=== PATIENT | female | born 1955 | race Caucasian/White ===

== ENCOUNTER 2019-09-28 07:30 | Inpatient (IN) | payer MEDICARE, OTHER ==
[~2019-09-28] VITALS: Ht 167.6 cm; Wt 71.0 kg
[2019-10-09] MEDS ORDERED: DICL75TA3 PO (13:30)
[2019-10-09 14:06] LABS: BASOPHILS # (AUTO) 0.04 x10^3/uL (0-0.1); BASOPHILS % (AUTO) 0 % (0-1); EOSINOPHILS # (AUTO) 0.13 x10^3/uL (0-0.4); EOSINOPHILS % (AUTO) 1 % (1-7); LYMPHOCYTES # (AUTO) 1.64 x10^3/uL (1-3.4); LYMPHOCYTES % (AUTO) 17 % (22-44); MD NO; MEAN CORPUSCULAR HEMOGLOBIN 30.3 pg (27.0-34.8); MEAN CORPUSCULAR HGB CONC 32.8 g/dL (32.4-35.8); MEAN CORPUSCULAR VOLUME 92.3 fL (80-100); MONOCYTES # (AUTO) 0.53 x10^3/uL (0.2-0.8); MONOCYTES % (AUTO) 5 % (2-9); NEUTROPHILS # (AUTO) 7.47 x10^3/uL (1.8-6.8); NEUTROPHILS % (AUTO) 76 % (42-75); PLATELET COUNT 733 x10^3/uL (130-400); RED BLOOD COUNT 3.96 x10^6/uL (3.82-5.3); RED CELL DISTRIBUTION WIDTH 15.1 % (9.6-15.2)
[2019-10-09 14:13] LABS: INTERNATIONAL NORMALIZED RATIO 0.96 (0.93-1.1); PROTHROMBIN TIME 10.2 Seconds (9.6-11.5)
[2019-10-09 14:14] LABS: ALANINE AMINOTRANSFERASE 17 U/L (12-78); ALBUMIN 3.4 g/dL (3.4-5.0); ANION GAP 5 mmol/L (5-15); CALCIUM 9.3 mg/dL (8.5-10.1); CHLORIDE 108 mmol/L (98-107); CREATININE 0.72 mg/dL (0.55-1.02)
[2019-10-09 14:16] LABS: ALKALINE PHOSPHATASE 81 U/L (45-117); BILIRUBIN,TOTAL 0.2 mg/dL (0.2-1.0); TOTAL PROTEIN 7.8 g/dL (6.4-8.2)
[2019-10-10] MEDS ORDERED: TRANEXAMIC ACID 100 MG/ML, 10ML ONE ×2 (06:20)
[2019-10-10] MEDS ORDERED: ROPIvacaine/PF 0.5%, 30 ML ONE ×2 (06:20→08:33)
[2019-10-10] MEDS ORDERED: VANCOMYCIN 1,000 MG ONE ×3 (06:20→15:21)
[2019-10-10] MEDS ORDERED: KETOROLAC 60 MG/2 ML ONE (06:20)
[2019-10-10] MEDS ORDERED: SODIUM CHLORIDE 0.9% 50 ML ONE (06:20)
[2019-10-10] MEDS ORDERED: EPINEPHRINE 1 MG/ML, 1ML ONE (06:20)
[2019-10-10] MEDS ORDERED: SCOPOLAMINE PATCH, 1.5MG PATCH.TD72 TD ONE (06:30)
[2019-10-10] MEDS ORDERED: VANCOMYCIN PER PHARMACY MC ONE (06:30)
[2019-10-10] MEDS ORDERED: ZOLPIDEM 5MG TABLET PO PRN (06:30)
[2019-10-10] MEDS ORDERED: MAGNESIUM HYDROXIDE 8%, 30ML UDC PO PRN (06:30)
[2019-10-10] MEDS ORDERED: ONDANSETRON 4 MG TABLET PO PRN (06:30)
[2019-10-10] MEDS ORDERED: BISACODYL 10 MG SUPP PR PRN (06:30)
[2019-10-10] MEDS ORDERED: HYDROcodone/APAP 5/325 TABLET PO PRN (06:30)
[2019-10-10] MEDS ORDERED: CEFAZOLIN PMX 2GM/50ML 50 ML IVPB SCH (06:30)
[2019-10-10] MEDS: DOCUSATE 100 MG CAPSULE PO SCH ×2 (09:00→20:13)
[2019-10-10] MEDS ORDERED: MIDAZOLAM 1 MG/ML, 2ML ONE (12:02)
[2019-10-10] MEDS ORDERED: FENTANYL PF 250 MCG/5ML ONE (12:02)
[2019-10-10] MEDS ORDERED: TOBRAMYCIN SULFATE 1.2 GM IMP ONE (12:33)
[2019-10-10] MEDS ORDERED: LACTATED RINGERS 1,000 ML IV SCH (12:50)
[2019-10-10] MEDS ORDERED: GABAPENTIN 300 MG CAPSULE PO ONE (13:00)
[2019-10-10] MEDS ORDERED: ACETAMINOPHEN 500 MG TABLET PO ONE (13:00)
[2019-10-10 13:10] VITALS: BP 135/90
[2019-10-10] MEDS ORDERED: VANCOMYCIN 1,200 MG in SODIUM CHLORIDE 0.9% 250 ML IV ONE (13:30)
[2019-10-10] MEDS ORDERED: PHARMACOKINETIC CONSULTATION MC ONE (13:30)
[2019-10-10] MEDS ORDERED: PROPOFOL 50 ML ONE ×2 (13:38→14:31)
[2019-10-10] MEDS ORDERED: DEXAMETHASONE 4 MG/ML, 1ML ONE ×2 (13:41)
[2019-10-10] MEDS ORDERED: ONDANSETRON 2MG/ML, 2ML ONE (13:41)
[2019-10-10] MEDS ORDERED: CEFAZOLIN 1,000 MG ONE ×2 (13:41)
[2019-10-10] MEDS ORDERED: LIDOCAINE-MPF 2% ,5ML ONE (13:42)
[2019-10-10] MEDS ORDERED: PHENYLEPHRINE 10 MG/ML ONE (13:49)
[2019-10-10] MEDS ORDERED: GLYCOPYRROLATE 0.2MG/1ML, 5ML ONE (13:49)
[2019-10-10] MEDS ORDERED: NEOSTIGMINE 1 MG/ML, 10ML ONE (13:49)
[2019-10-10] MEDS ORDERED: ROCURONIUM 10 MG/ML,10ML ONE (13:49)
[2019-10-10] MEDS ORDERED: INDIGO CARMINE 0.8%, 5ML ONE (14:19)
[2019-10-10] MEDS ORDERED: FENTANYL PF 100 MCG/2ML ONE (16:11)
[2019-10-10] MEDS ORDERED: OXYcodone 5 MG/5 ML ORAL.SOL UDC ONE (16:12)
[2019-10-10] MEDS: FENTANYL PF 100 MCG/2ML IV PRN ×2 (16:15→16:50)
[2019-10-10] MEDS ORDERED: HYDROmorphone 2 MG/ML, 1ML IVPush PRN (16:30)
[2019-10-10] MEDS ORDERED: MEPERIDINE/PF 25MG/ML,1ML IVPush PRN (16:30)
[2019-10-10] MEDS ORDERED: DIAZEPAM 5 MG/ML, 2ML IVPush PRN (16:30)
[2019-10-10] MEDS ORDERED: ONDANSETRON 2MG/ML, 2ML IV PRN (16:30)
[2019-10-10] MEDS ORDERED: ACETAMINOPHEN 325 MG TABLET PO PRN (16:30)
[2019-10-10] MEDS ORDERED: OXYcodone 5 MG/5 ML ORAL.SOL UDC PO PRN (16:30)
[2019-10-10] MEDS ORDERED: ACETAMINOPHEN 650 MG/20.3 ML UDC ONE (16:32)
[2019-10-10] MEDS ORDERED: ACETAMINOPHEN 325 MG TABLET ONE (16:32)
[2019-10-10] MEDS ORDERED: DIAZEPAM 5 MG/ML, 2ML ONE (16:55)
[2019-10-10] MEDS: ASPIRIN 81 MG TABLET EC PO SCH (18:00)
[2019-10-10 19:22] VITALS: BP 91/60
[2019-10-10] MEDS: DAPTOMYCIN 400 MG in SODIUM CHLORIDE 0.9% 100 ML IVPB SCH (20:13)
[2019-10-10] MEDS: ONDANSETRON 2MG/ML, 2ML IV PRN (20:16)
[2019-10-10] MEDS: OXYcodone IR 5MG TABLET PO PRN (20:42)
[2019-10-10] MEDS: ACETAMINOPHEN 650 MG/20.3 ML UDC PO PRN (20:42)
[2019-10-10] MEDS: NS + 20MEQ KCL 1,000 ML IV SCH (22:00)
[2019-10-11] VITALS (9 sets, daily range): BP systolic 88–109; BP diastolic 47–72
[2019-10-11] MEDS: OXYcodone IR 5MG TABLET PO PRN ×4 (01:09→20:46)
[2019-10-11] MEDS: ACETAMINOPHEN 650 MG/20.3 ML UDC PO PRN ×3 (01:09→18:45)
[2019-10-11] MEDS ORDERED: DEXAMETHASONE 4 MG/ML, 1ML IVPush SCH (06:00)
[2019-10-11] MEDS ORDERED: DIPHENHYDRAMINE 50 MG/ML, 1ML IVPush PRN (06:30)
[2019-10-11] MEDS: ONDANSETRON 2MG/ML, 2ML IV PRN (07:51)
[2019-10-11] MEDS: DIPHENHYDRAMINE 50 MG CAPSULE PO PRN ×2 (07:51→18:50)
[2019-10-11] MEDS: ASPIRIN 81 MG TABLET EC PO SCH ×2 (07:51→18:44)
[2019-10-11] MEDS: DOCUSATE 100 MG CAPSULE PO SCH ×2 (09:25→20:29)
[2019-10-11] MEDS: SENNA/DOCUSATE TABLET PO PRN (09:26)
[2019-10-11] MEDS: NS + 20MEQ KCL 1,000 ML IV SCH ×2 (10:30→23:00)
[2019-10-11] MEDS ORDERED: DIPHENHYDRAMINE 25 MG CAPSULE ONE (18:49)
[2019-10-11] MEDS: DAPTOMYCIN 400 MG in SODIUM CHLORIDE 0.9% 100 ML IVPB SCH (20:29)
[2019-10-12 01:02] VITALS: BP 105/65
[2019-10-12] MEDS: OXYcodone IR 5MG TABLET PO PRN ×4 (01:56→21:09)
[2019-10-12] MEDS: ACETAMINOPHEN 650 MG/20.3 ML UDC PO PRN ×4 (01:56→21:09)
[2019-10-12] MEDS: DIPHENHYDRAMINE 50 MG CAPSULE PO PRN ×4 (02:05→21:09)
[2019-10-12 05:45] LABS: ANION GAP 6 mmol/L (5-15); CALCIUM 7.8 mg/dL (8.5-10.1); CHLORIDE 111 mmol/L (98-107); CREATININE 0.78 mg/dL (0.55-1.02)
[2019-10-12 06:04] LABS: BASOPHILS # (AUTO) 0.03 x10^3/uL (0-0.1); BASOPHILS % (AUTO) 0 % (0-1); EOSINOPHILS # (AUTO) 0.19 x10^3/uL (0-0.4); EOSINOPHILS % (AUTO) 2 % (1-7); HCT (SEDRATE) 24.7 % (34.6-47.8); LYMPHOCYTES # (AUTO) 1.89 x10^3/uL (1-3.4); LYMPHOCYTES % (AUTO) 17 % (22-44); MD NO; MEAN CORPUSCULAR HEMOGLOBIN 31.4 pg (27.0-34.8); MEAN CORPUSCULAR HGB CONC 33.9 g/dL (32.4-35.8); MEAN CORPUSCULAR VOLUME 92.5 fL (80-100); MEAN PLATELET VOLUME 6.4 fL (7.4-10.4); MONOCYTES # (AUTO) 0.89 x10^3/uL (0.2-0.8); MONOCYTES % (AUTO) 8 % (2-9); NEUTROPHILS # (AUTO) 8.29 x10^3/uL (1.8-6.8); NEUTROPHILS % (AUTO) 74 % (42-75); PLATELET COUNT 439 x10^3/uL (130-400); RED BLOOD COUNT 2.67 x10^6/uL (3.82-5.3); RED CELL DISTRIBUTION WIDTH 15.2 % (9.6-15.2)
[2019-10-12] MEDS: ASPIRIN 81 MG TABLET EC PO SCH ×2 (07:34→17:45)
[2019-10-12] MEDS: SENNA/DOCUSATE TABLET PO PRN (09:28)
[2019-10-12] MEDS: DOCUSATE 100 MG CAPSULE PO SCH ×2 (09:28→21:09)
[2019-10-12] MEDS: NS + 20MEQ KCL 1,000 ML IV SCH (11:30)
[2019-10-12] MEDS: ERTAPENEM 1 GM in SODIUM CHLORIDE 0.9% 50 ML IV SCH (15:58)
[2019-10-12 19:19] VITALS: BP 99/58
[2019-10-12] MEDS ORDERED: DAPTOMYCIN 400 MG in SODIUM CHLORIDE 0.9% 100 ML IVPB SCH (20:00)
[2019-10-13 01:27] VITALS: BP 93/57
[2019-10-13] MEDS: DIPHENHYDRAMINE 50 MG CAPSULE PO PRN (05:05)
[2019-10-13] MEDS: ACETAMINOPHEN 650 MG/20.3 ML UDC PO PRN ×3 (05:05→14:09)
[2019-10-13] MEDS: ASPIRIN 81 MG TABLET EC PO SCH (05:05)
[2019-10-13] MEDS: OXYcodone IR 5MG TABLET PO PRN ×3 (05:05→14:10)
[2019-10-13 06:51] VITALS: BP 102/63
[2019-10-13] MEDS: DOCUSATE 100 MG CAPSULE PO SCH (09:10)
[2019-10-13] MEDS: ONDANSETRON 2MG/ML, 2ML IV PRN (09:10)
[2019-10-13] MEDS ORDERED: OXYC5CAP2 PO (10:27)
[2019-10-13] MEDS ORDERED: TRAM50TA2 PO (10:28)
[2019-10-13] MEDS ORDERED: MELO7.5T31 PO (10:28)
[2019-10-13 12:25] VITALS: BP 104/65
[2019-10-13] MEDS: NS + 20MEQ KCL 1,000 ML IV SCH ×2 (12:30)
[2019-10-13] MEDS: ERTAPENEM 1 GM in SODIUM CHLORIDE 0.9% 50 ML IV SCH (12:35)
== END 2019-10-13 14:55 | disposition home or self-care (01) | DRG 467 ==
LOC: ORIP 10-10 12:34 → EDSTATUS 10-10 14:30 → 4NE 10-10 18:06 → DCLOUNGE 10-13 14:34
PROVIDERS: ADMIT Orthopaedic Surgery; ATTEND Orthopaedic Surgery
PROC: 0SP90JZ Removal of Synthetic Substitute from Right Hip Joint, Open Approach (ICD-10-PCS; 2019-10-10)
PROC: 0SR90J9 Replacement of Right Hip Joint with Synthetic Substitute, Cemented, Open Approach (ICD-10-PCS; principal; 2019-10-10 14:30)
PROC: 30233N1 Transfusion of Nonautologous Red Blood Cells into Peripheral Vein, Percutaneous Approach (ICD-10-PCS; 2019-10-11)
PROC: 02HV33Z Insertion of Infusion Device into Superior Vena Cava, Percutaneous Approach (ICD-10-PCS; 2019-10-13)
PROC: B5181ZA Fluoroscopy of Superior Vena Cava using Low Osmolar Contrast, Guidance (ICD-10-PCS; 2019-10-13)
PROC: B548ZZA Ultrasonography of Superior Vena Cava, Guidance (ICD-10-PCS; 2019-10-13)
DX: T84.51XA Infection and inflammatory reaction due to internal right hip prosthesis, initial encounter (principal); D62 Acute posthemorrhagic anemia; Y83.1 Surgical operation with implant of artificial internal device as the cause of abnormal reaction of the patient, or of later complication, without mention of misadventure at the time of the procedure; Y92.89 Other specified places as the place of occurrence of the external cause
CPT/HCPCS: 36415; 36573; 72170; 80048; 80053; 83036; 85014; 85018; 85025; 85610; 85651; 85730; 86140; 86850; 86900; 86923; 87070; 87075; 87077; 87081; 87176; 87205; 93005; C1713; G0378; J0171; J0690; J0878; J1100; J1335; J1885; J2250; J2405; J2704; J2710; J2795; J3010; J3260; J3360; J3370; C1751; C1762; C1776; J2370; J7050; J7120; P9016

== ENCOUNTER → 2019-12-03 | Outpatient (CLI) | payer MEDICARE, OTHER ==
[~2019-12-03] MED LIST: ASCO10004 PO; DICL75TA3 PO; ERGO500017 PO; IRON PO; MELO7.5T31 PO; MULT-709 PO; OXYC5CAP2 PO; TRAM50TA2 PO; UBID100C10 PO
[2019-12-03 09:11] LABS: BASOPHILS # (AUTO) 0.04 x10^3/uL (0-0.1); BASOPHILS % (AUTO) 0 % (0-1); EOSINOPHILS % (AUTO) 4 % (1-7); LYMPHOCYTES # (AUTO) 1.33 x10^3/uL (1-3.4); LYMPHOCYTES % (AUTO) 14 % (22-44); MD NO; MEAN CORPUSCULAR HEMOGLOBIN 29.7 pg (27.0-34.8); MEAN CORPUSCULAR VOLUME 92.6 fL (80-100); MEAN PLATELET VOLUME 6.2 fL (7.4-10.4); MONOCYTES # (AUTO) 0.48 x10^3/uL (0.2-0.8); MONOCYTES % (AUTO) 5 % (2-9); NEUTROPHILS # (AUTO) 7.43 x10^3/uL (1.8-6.8); NEUTROPHILS % (AUTO) 77 % (42-75); PLATELET COUNT 537 x10^3/uL (130-400); RED CELL DISTRIBUTION WIDTH 17.2 % (9.6-15.2)
[2019-12-03 09:13] LABS: INTERNATIONAL NORMALIZED RATIO 0.94 (0.93-1.1)
[2019-12-03 09:16] LABS: ALBUMIN 3.9 g/dL (3.4-5.0); ANION GAP 7 mmol/L (5-15); CALCIUM 9.2 mg/dL (8.5-10.1); CHLORIDE 109 mmol/L (98-107)
[2019-12-03 09:20] LABS: ALANINE AMINOTRANSFERASE 34 U/L (12-78); ALKALINE PHOSPHATASE 112 U/L (45-117); BILIRUBIN,TOTAL 0.3 mg/dL (0.2-1.0); CREATININE 1.02 mg/dL (0.55-1.02); TOTAL PROTEIN 8.2 g/dL (6.4-8.2)
== END | disposition home or self-care (01) ==
LOC: STAR 07:43
PROVIDERS: ATTEND Orthopaedic Surgery
DX: Z01.818 Encounter for other preprocedural examination (principal); Z96.641 Presence of right artificial hip joint; T84.51XD Infection and inflammatory reaction due to internal right hip prosthesis, subsequent encounter; T84.84XA Pain due to internal orthopedic prosthetic devices, implants and grafts, initial encounter
CPT/HCPCS: 36415; 80053; 83036; 85025; 85610; 85730; 87081

== ENCOUNTER 2019-12-12 06:23 | Inpatient (IN) | payer MEDICARE, OTHER ==
[~2019-12-12] VITALS: Ht 167.6 cm; Wt 70.1 kg
[2019-12-12] MEDS ORDERED: VANCOMYCIN 1,000 MG ONE ×2 (06:41→10:03)
[2019-12-12] MEDS ORDERED: TRANEXAMIC ACID 100 MG/ML, 10ML ONE ×2 (06:41)
[2019-12-12] MEDS ORDERED: SODIUM CHLORIDE 0.9% 50 ML ONE (06:41)
[2019-12-12] MEDS ORDERED: KETOROLAC 60 MG/2 ML ONE (06:41)
[2019-12-12] MEDS ORDERED: EPINEPHRINE 1 MG/ML, 1ML ONE (06:41)
[2019-12-12] MEDS ORDERED: ROPIvacaine/PF 0.5%, 30 ML ONE (06:41)
[2019-12-12] MEDS ORDERED: VANCOMYCIN PER PHARMACY MC STA (06:53)
[2019-12-12] MEDS ORDERED: GABAPENTIN 300 MG CAPSULE PO STA (07:07)
[2019-12-12] MEDS ORDERED: ACETAMINOPHEN 500 MG TABLET PO STA (07:07)
[2019-12-12] MEDS ORDERED: LACTATED RINGERS 1,000 ML IV SCH (07:08)
[2019-12-12] MEDS ORDERED: LIDOCAINE-MPF 1%, 2ML INFIL ONE (07:30)
[2019-12-12] MEDS ORDERED: VANCOMYCIN PMX 1GM/200ML 200 ML IV ONE (07:30)
[2019-12-12] MEDS ORDERED: MIDAZOLAM 1 MG/ML, 2ML ONE (07:37)
[2019-12-12] MEDS ORDERED: FENTANYL PF 250 MCG/5ML ONE (07:37)
[2019-12-12] MEDS ORDERED: ROCURONIUM 10MG/ML,5ML ONE (07:40)
[2019-12-12] MEDS ORDERED: ONDANSETRON 2MG/ML, 2ML ONE (07:40)
[2019-12-12] MEDS ORDERED: NEOSTIGMINE 1 MG/ML, 10ML ONE (07:40)
[2019-12-12] MEDS ORDERED: DEXAMETHASONE 4 MG/ML, 1ML ONE (07:40)
[2019-12-12] MEDS ORDERED: PROPOFOL 10 MG/ML, 20ML ONE (07:40)
[2019-12-12] MEDS ORDERED: GLYCOPYRROLATE 0.2MG/1ML, 5ML ONE (07:40)
[2019-12-12] MEDS ORDERED: CEFAZOLIN 1,000 MG ONE (07:40)
[2019-12-12] MEDS ORDERED: BISACODYL 10 MG SUPP PR PRN (08:30)
[2019-12-12] MEDS ORDERED: ACETAMINOPHEN 650 MG/20.3 ML UDC PO PRN (08:30)
[2019-12-12] MEDS ORDERED: ONDANSETRON 2MG/ML, 2ML IV PRN (08:30)
[2019-12-12] MEDS ORDERED: MAGNESIUM HYDROXIDE 8%, 30ML UDC PO PRN (08:30)
[2019-12-12] MEDS ORDERED: DIPHENHYDRAMINE 25 MG CAPSULE PO PRN (08:30)
[2019-12-12] MEDS ORDERED: ONDANSETRON 4 MG TABLET PO PRN (08:30)
[2019-12-12] MEDS ORDERED: ZOLPIDEM 5MG TABLET PO PRN (08:30)
[2019-12-12] MEDS ORDERED: SENNA/DOCUSATE TABLET PO PRN (08:30)
[2019-12-12] MEDS ORDERED: HYDROcodone/APAP 5/325 TABLET PO PRN (08:30)
[2019-12-12] MEDS ORDERED: PHENYLEPHRINE 10 MG/ML ONE (08:47)
[2019-12-12] MEDS ORDERED: PROPOFOL 10 MG/ML, 50ML ONE (08:47)
[2019-12-12] MEDS ORDERED: MEPERIDINE/PF 25MG/ML,1ML IVPush PRN (09:00)
[2019-12-12] MEDS ORDERED: OXYcodone 5 MG/5 ML ORAL.SOL UDC PO PRN (09:00)
[2019-12-12] MEDS: DOCUSATE 100 MG CAPSULE PO SCH ×2 (09:00→20:38)
[2019-12-12] MEDS ORDERED: HALOPERIDOL 5 MG/ML IV PRN (09:00)
[2019-12-12] MEDS ORDERED: hydrALAzine 20 MG/ML, 1ML IV PRN (09:00)
[2019-12-12] MEDS ORDERED: PROMETHAZINE 25 MG/ML, 1ML IV PRN (09:00)
[2019-12-12] MEDS ORDERED: LABETALOL 5MG/ML, 20ML IV PRN (09:00)
[2019-12-12] MEDS ORDERED: MORPHINE SULFATE 4 MG/ML, 1ML IVPush PRN (09:00)
[2019-12-12] MEDS ORDERED: OXYcodone 5 MG/5 ML ORAL.SOL UDC ONE (10:43)
[2019-12-12] MEDS ORDERED: HYDROmorphone 1 MG/ML, 1ML INJ ONE (10:43)
[2019-12-12] MEDS ORDERED: FENTANYL PF 100 MCG/2ML ONE (10:43)
[2019-12-12] MEDS: FENTANYL PF 100 MCG/2ML IV PRN ×2 (10:45→11:15)
[2019-12-12] MEDS: HYDROmorphone 2 MG/ML, 1ML IVPush PRN ×2 (10:50→11:25)
[2019-12-12] MEDS ORDERED: DIPHENHYDRAMINE 50 MG/ML, 1ML ONE (10:59)
[2019-12-12] MEDS ORDERED: DIPHENHYDRAMINE 50 MG/ML, 1ML IVPush PRN (11:30)
[2019-12-12 12:05] VITALS: BP 110/68
[2019-12-12] MEDS: NS + 20MEQ KCL 1,000 ML IV SCH (13:58)
[2019-12-12] MEDS: OXYcodone IR 5MG TABLET PO PRN ×2 (15:41→20:39)
[2019-12-12] MEDS: CEFAZOLIN PMX 2GM/50ML 50 ML IVPB SCH (17:02)
[2019-12-12] MEDS: ASPIRIN 81 MG TABLET EC PO SCH (17:51)
[2019-12-12 18:58] VITALS: BP 122/73
[2019-12-12 23:41] VITALS: BP 104/68
[2019-12-13] MEDS: CEFAZOLIN PMX 2GM/50ML 50 ML IVPB SCH ×3 (00:57→17:31)
[2019-12-13] MEDS: OXYcodone IR 5MG TABLET PO PRN ×6 (01:04→23:22)
[2019-12-13] MEDS: NS + 20MEQ KCL 1,000 ML IV SCH ×2 (02:53→17:31)
[2019-12-13 05:25] VITALS: BP 108/69
[2019-12-13] MEDS ORDERED: DEXAMETHASONE 4 MG/ML, 1ML IVPush SCH (06:00)
[2019-12-13] MEDS: ASPIRIN 81 MG TABLET EC PO SCH ×2 (06:12→17:32)
[2019-12-13] MEDS: DIPHENHYDRAMINE 50 MG CAPSULE PO PRN ×2 (06:19→23:21)
[2019-12-13 06:59] VITALS: BP 105/66
[2019-12-13] MEDS: DOCUSATE 100 MG CAPSULE PO SCH ×2 (08:52→21:10)
[2019-12-13 13:16] VITALS: BP 115/71
[2019-12-13 18:40] VITALS: BP 110/81
[2019-12-14] MEDS: CEFAZOLIN PMX 2GM/50ML 50 ML IVPB SCH ×2 (01:11→09:17)
[2019-12-14 01:33] VITALS: BP 119/76
[2019-12-14] MEDS: NS + 20MEQ KCL 1,000 ML IV SCH (05:25)
[2019-12-14] MEDS: ASPIRIN 81 MG TABLET EC PO SCH (05:29)
[2019-12-14] MEDS: OXYcodone IR 5MG TABLET PO PRN ×2 (05:29→09:14)
[2019-12-14 07:03] VITALS: BP 101/58
[2019-12-14] MEDS: DOCUSATE 100 MG CAPSULE PO SCH (09:14)
[2019-12-14] MEDS ORDERED: OXYC5CAP2 PO (09:26)
[2019-12-14] MEDS ORDERED: MELO7.5T31 PO (09:27)
[2019-12-14] MEDS ORDERED: CEPH-368 PO (09:27)
[2019-12-14] MEDS ORDERED: ASPI81TA45 PO (09:29)
== END 2019-12-14 12:15 | disposition home or self-care (01) | DRG 467 ==
LOC: ORIP 06:23 → 4NE 11:59
PROVIDERS: ADMIT Orthopaedic Surgery; ATTEND Orthopaedic Surgery
PROC: 0SP90JZ Removal of Synthetic Substitute from Right Hip Joint, Open Approach (ICD-10-PCS; 2019-12-12)
PROC: 0SR90JZ Replacement of Right Hip Joint with Synthetic Substitute, Open Approach (ICD-10-PCS; principal; 2019-12-12 08:45)
DX: T84.51XA Infection and inflammatory reaction due to internal right hip prosthesis, initial encounter (principal); D62 Acute posthemorrhagic anemia
CPT/HCPCS: 36415; 72170; 85014; 85018; 86850; 86900; 87070; 87075; 87176; 87205; C1713; G0378; J0171; J0690; J1100; J1170; J1885; J2250; J2405; J2704; J2710; J2795; J3010; J3370; J3480; C1776; J1200; J2370; J7120

== ENCOUNTER → 2020-03-07 | Outpatient (CLI) | payer MEDICARE, OTHER ==
[~2020-03-07] MED LIST changes: +ASPI81TA45 PO; +CEPH-368 PO; +CEPH-376 PO; +MELO15TA24 PO
[2020-03-07 13:16] LABS: BASOPHILS # (AUTO) 0.01 x10^3/uL (0-0.1); BASOPHILS % (AUTO) 0 % (0-1); EOSINOPHILS % (AUTO) 2 % (1-7); LYMPHOCYTES # (AUTO) 1.57 x10^3/uL (1-3.4); LYMPHOCYTES % (AUTO) 23 % (22-44); MD NO; MEAN CORPUSCULAR HEMOGLOBIN 30.4 pg (27.0-34.8); MEAN CORPUSCULAR HGB CONC 33.1 g/dL (32.4-35.8); MEAN PLATELET VOLUME 6.9 fL (7.4-10.4); MONOCYTES # (AUTO) 0.44 x10^3/uL (0.2-0.8); MONOCYTES % (AUTO) 7 % (2-9); NEUTROPHILS # (AUTO) 4.59 x10^3/uL (1.8-6.8); NEUTROPHILS % (AUTO) 68 % (42-75); PLATELET COUNT 357 x10^3/uL (130-400); RED BLOOD COUNT 4.98 x10^6/uL (3.82-5.3); RED CELL DISTRIBUTION WIDTH 15.6 % (9.6-15.2)
[2020-03-07 13:27] LABS: ALANINE AMINOTRANSFERASE 34 U/L (12-78); ALBUMIN 4.3 g/dL (3.4-5.0); ANION GAP 7 mmol/L (5-15); CALCIUM 9.5 mg/dL (8.5-10.1); CHLORIDE 108 mmol/L (98-107); CREATININE 0.93 mg/dL (0.55-1.02); INTERNATIONAL NORMALIZED RATIO 0.98 (0.93-1.1); PROTHROMBIN TIME 10.4 Seconds (9.6-11.5)
[2020-03-07 13:29] LABS: ALKALINE PHOSPHATASE 90 U/L (45-117); BILIRUBIN,TOTAL 0.6 mg/dL (0.2-1.0); TOTAL PROTEIN 7.9 g/dL (6.4-8.2)
== END | disposition home or self-care (01) ==
LOC: STAR 12:04
PROVIDERS: ATTEND Orthopaedic Surgery
DX: Z01.818 Encounter for other preprocedural examination (principal); Z11.59 Encounter for screening for other viral diseases; M17.12 Unilateral primary osteoarthritis, left knee
CPT/HCPCS: 36415; 80053; 83036; 85025; 85610; 85730; 87081; 93005; U0001

== ENCOUNTER 2020-03-12 11:49 | Observation (INO) | payer MEDICARE, OTHER ==
[~2020-03-12] VITALS: Ht 167.6 cm; Wt 63.1 kg
[~2020-03-12 11:49] MED LIST changes: +ACETAMINOPHEN 325 MG TABLET PO PRN; +ACETAMINOPHEN 650 MG/20.3 ML UDC PO PRN; +BISACODYL 10 MG SUPP PR PRN; +DIPHENHYDRAMINE 50 MG CAPSULE PO PRN; +EPINEPHRINE 1 MG/ML, 1ML ONE; +HYDROcodone/APAP 5/325 TABLET PO PRN; +HYDROmorphone 1 MG/ML, 1ML INJ IV PRN; +MAGNESIUM HYDROXIDE 8%, 30ML UDC PO PRN; +ONDANSETRON 2MG/ML, 2ML IV PRN; +ONDANSETRON 4 MG TABLET PO PRN; +ROPIvacaine/PF 0.5%, 20 ML ONE; +ROPIvacaine/PF 0.5%, 30 ML ONE; +SENNA/DOCUSATE TABLET PO PRN; +SODIUM CHLORIDE 0.9% 100 ML ONE; +TRANEXAMIC ACID 100 MG/ML, 10ML ONE; +VANCOMYCIN 1,000 MG ONE; +ZOLPIDEM 5MG TABLET PO PRN
[2020-03-12] MEDS ORDERED: CHLORHEXIDINE 15 ML UDC MM ONE (12:00)
[2020-03-12] MEDS ORDERED: LACTATED RINGERS 1,000 ML IV SCH (12:00)
[2020-03-12] MEDS ORDERED: GABAPENTIN 300 MG CAPSULE PO STA (12:01)
[2020-03-12] MEDS ORDERED: ACETAMINOPHEN 500 MG TABLET PO STA (12:01)
[2020-03-12] MEDS ORDERED: ACETAMINOPHEN 500 MG TABLET ONE (12:12)
[2020-03-12] MEDS ORDERED: CHLORHEXIDINE 15 ML UDC ONE (12:12)
[2020-03-12] MEDS ORDERED: GABAPENTIN 300 MG CAPSULE ONE (12:12)
[2020-03-12] MEDS ORDERED: KETOROLAC 60 MG/2 ML ONE (13:09)
[2020-03-12] MEDS ORDERED: FENTANYL PF 250 MCG/5ML ONE (13:18)
[2020-03-12] MEDS ORDERED: MIDAZOLAM 1 MG/ML, 2ML ONE (13:18)
[2020-03-12] MEDS ORDERED: HYDROmorphone 1 MG/ML, 1ML INJ IVPush PRN (13:30)
[2020-03-12] MEDS ORDERED: LABETALOL 5MG/ML, 20ML IV PRN (13:30)
[2020-03-12] MEDS ORDERED: ONDANSETRON 2MG/ML, 2ML IVPush PRN (13:30)
[2020-03-12] MEDS ORDERED: hydrALAzine 20 MG/ML, 1ML IV PRN (13:30)
[2020-03-12] MEDS ORDERED: DIAZEPAM 5 MG/ML, 2ML IVPush PRN (13:30)
[2020-03-12] MEDS ORDERED: OXYcodone 5 MG/5 ML ORAL.SOL UDC PO PRN (13:30)
[2020-03-12] MEDS ORDERED: MEPERIDINE/PF 25MG/0.5ML IVPush PRN (13:30)
[2020-03-12] MEDS ORDERED: SUCCINYLCHOLINE 20 MG/ML, 10ML ONE (14:27)
[2020-03-12] MEDS ORDERED: ONDANSETRON 2MG/ML, 2ML ONE (14:27)
[2020-03-12] MEDS ORDERED: PROPOFOL 10 MG/ML, 20ML ONE (14:27)
[2020-03-12] MEDS ORDERED: DEXAMETHASONE 4 MG/ML, 1ML ONE (14:27)
[2020-03-12] MEDS ORDERED: OXYcodone 5 MG/5 ML ORAL.SOL UDC ONE (15:52)
[2020-03-12] MEDS ORDERED: FENTANYL PF 100 MCG/2ML ONE (15:52)
[2020-03-12] MEDS: FENTANYL PF 100 MCG/2ML IV PRN ×2 (15:53→16:00)
[2020-03-12] MEDS ORDERED: MEPERIDINE/PF 25MG/ML,1ML ONE (16:23)
[2020-03-12 17:15] VITALS: BP 145/86
[2020-03-12] MEDS: NS + 20MEQ KCL 1,000 ML IV SCH (18:02)
[2020-03-12] MEDS: ASPIRIN 81 MG TABLET EC PO SCH (18:02)
[2020-03-12] MEDS: CEFAZOLIN PMX 2GM/50ML 50 ML IVPB SCH (18:02)
[2020-03-12 18:41] VITALS: BP 138/80
[2020-03-12] MEDS: OXYcodone IR 5MG TABLET PO PRN (22:01)
[2020-03-12] MEDS: DOCUSATE 100 MG CAPSULE PO SCH (22:01)
[2020-03-13 01:19] VITALS: BP 123/77
[2020-03-13] MEDS: OXYcodone IR 5MG TABLET PO PRN ×3 (02:00→11:17)
[2020-03-13] MEDS: CEFAZOLIN PMX 2GM/50ML 50 ML IVPB SCH (02:00)
[2020-03-13 03:42] VITALS: BP 128/74
[2020-03-13] MEDS: ASPIRIN 81 MG TABLET EC PO SCH (05:51)
[2020-03-13] MEDS: NS + 20MEQ KCL 1,000 ML IV SCH (05:57)
[2020-03-13] MEDS ORDERED: DEXAMETHASONE 4 MG/ML, 1ML IVPush SCH (06:00)
[2020-03-13 08:08] VITALS: BP 111/68
[2020-03-13] MEDS: DOCUSATE 100 MG CAPSULE PO SCH (08:19)
[2020-03-13] MEDS ORDERED: ASPI81TA45 PO (10:03)
[2020-03-13] MEDS ORDERED: OXYC5CAP2 PO (10:04)
[2020-03-13 11:46] VITALS: BP 119/77
== END 2020-03-13 12:38 | disposition home or self-care (01) ==
LOC: OUT 11:49 → 4NE 17:29 → OUT 21:02 → DCLOUNGE 03-13 12:31
PROVIDERS: ADMIT Orthopaedic Surgery; ATTEND Orthopaedic Surgery
DX: M17.12 Unilateral primary osteoarthritis, left knee (principal); M21.062 Valgus deformity, not elsewhere classified, left knee; Z87.891 Personal history of nicotine dependence; Z79.899 Other long term (current) drug therapy
CPT/HCPCS: 27447; 36415; 85014; 85018; 96365; 96366; 96375; 97161; 97165; C1713; C1776; G0378; J0171; J0330; J0690; J1100; J1170; J1885; J2250; J2405; J2704; J2795; J3010; J3370; J3480; J7120

== ENCOUNTER 2021-03-23 08:29 | Outpatient (CLI) | payer MEDICARE, OTHER ==
[~2021-03-23 08:29] MED LIST changes: -ACETAMINOPHEN 325 MG TABLET PO PRN; -ACETAMINOPHEN 650 MG/20.3 ML UDC PO PRN; +ASCO100018 PO; -ASCO10004 PO; -BISACODYL 10 MG SUPP PR PRN; -DIPHENHYDRAMINE 50 MG CAPSULE PO PRN; -EPINEPHRINE 1 MG/ML, 1ML ONE; -HYDROcodone/APAP 5/325 TABLET PO PRN; -HYDROmorphone 1 MG/ML, 1ML INJ IV PRN; -MAGNESIUM HYDROXIDE 8%, 30ML UDC PO PRN; -ONDANSETRON 2MG/ML, 2ML IV PRN; -ONDANSETRON 4 MG TABLET PO PRN; -ROPIvacaine/PF 0.5%, 20 ML ONE; -ROPIvacaine/PF 0.5%, 30 ML ONE; -SENNA/DOCUSATE TABLET PO PRN; -SODIUM CHLORIDE 0.9% 100 ML ONE; -TRANEXAMIC ACID 100 MG/ML, 10ML ONE; -VANCOMYCIN 1,000 MG ONE; -ZOLPIDEM 5MG TABLET PO PRN
== END 2021-03-23 23:59 | disposition home or self-care (01) ==
LOC: STAR 08:29
PROVIDERS: ATTEND Nurse Practitioner
DX: Z20.822 Contact with and (suspected) exposure to COVID-19 (principal)
CPT/HCPCS: U0003; U0005

== ENCOUNTER 2021-03-27 10:38 | Outpatient (CLI) | payer MEDICARE, OTHER ==
[~2021-03-27] VITALS: Ht 167.6 cm; Wt 62.0 kg
[~2021-03-27 10:38] MED LIST changes: +PROPOFOL 10 MG/ML, 20ML ONE; +PROPOFOL 10 MG/ML, 50ML ONE
[2021-03-27 11:06] VITALS: BP 132/91
[2021-03-27] MEDS ORDERED: CHLORHEXIDINE 15 ML UDC ONE (11:21)
[2021-03-27] MEDS ORDERED: CHLORHEXIDINE 15 ML UDC PO ONE (11:30)
[2021-03-27] MEDS ORDERED: LACTATED RINGERS 1,000 ML IV SCH (11:30)
[2021-03-27] MEDS ORDERED: FENTANYL PF 100 MCG/2ML IV PRN (14:00)
[2021-03-27] MEDS ORDERED: DIPHENHYDRAMINE 50 MG/ML, 1ML IVPush PRN (14:00)
[2021-03-27] MEDS ORDERED: ACETAMINOPHEN 325 MG TABLET PO PRN (14:00)
[2021-03-27] MEDS ORDERED: EPHEDRINE 50 MG/ML, 1ML IM PRN (14:00)
[2021-03-27] MEDS ORDERED: ONDANSETRON 2MG/ML, 2ML IVPush PRN (14:00)
[2021-03-27] MEDS ORDERED: OXYcodone 5 MG/5 ML ORAL.SOL UDC PO PRN (14:00)
[2021-03-27] MEDS ORDERED: DIAZEPAM 5 MG/ML, 2ML IVPush PRN (14:00)
[2021-03-27] MEDS ORDERED: PROMETHAZINE 25 MG/ML, 1ML IVPush PRN (14:00)
== END 2021-03-27 14:30 | disposition home or self-care (01) ==
LOC: RAD 10:38
PROVIDERS: ATTEND Nurse Practitioner
DX: M50.323 Other cervical disc degeneration at C6-C7 level (principal); M47.812 Spondylosis without myelopathy or radiculopathy, cervical region; M25.78 Osteophyte, vertebrae; G47.00 Insomnia, unspecified; Z79.899 Other long term (current) drug therapy; Z87.891 Personal history of nicotine dependence; Z98.890 Other specified postprocedural states; Z80.8 Family history of malignant neoplasm of other organs or systems
CPT/HCPCS: 72141; 93005; J2704; J7120